=== PATIENT | female | born 1985 | race Two or more races ===

== ENCOUNTER → 2021-04-30 | Emergency (ER) | payer OTHER ==
[~2021-04-30] VITALS: Ht 160 cm; Wt 52.2 kg
[~2021-04-30] MED LIST: TENORMIN25 MG PO; XANAX0.25 MG PO
== END | disposition left against medical advice (07) ==
LOC: ER 14:07
DX: S00.83XA Contusion of other part of head, initial encounter (principal); S70.02XA Contusion of left hip, initial encounter; W18.39XA Other fall on same level, initial encounter; Y93.89 Activity, other specified; Y92.89 Other specified places as the place of occurrence of the external cause; Y99.8 Other external cause status